=== PATIENT | female | born 1980 | race Caucasian/White ===

== ENCOUNTER 2016-06-02 12:18 | Emergency (ER) | payer MEDICARE, MEDICAID ==
[2016-06-02 12:46] VITALS: BP 115/69
[2016-06-02] MEDS ORDERED: Ketorolac 60 MG/2 ML SDV IM ONE (12:51)
--- NOTE | 2016-06-02 12:57 | EDM.PDOC ---
[id number] 4d PAIN RIGHT SIDE OV PELVIC AREA Time Seen by Provider: 06/02/16 12:30 Source: Reports: Patient, Family History Limitations: Reports: No limitations - History of Present Illness INITIAL COMMENTS - FREE TEXT/NARRATIVE: 36-year-old female in with intense right lower and suprapubic abdominal pain for the past 45 minutes. It started suddenly while she was sitting, very sharp and localized in the lower abdomen. No radiation of pain. No nausea vomiting diarrhea or urinary symptoms. She was brought immediately to the emergency room by her , and shortly after she arrived it started going away and now it is almost gone. She has not had this type of pain in the past. Location: suprapubic Quality: Reports: stabbing Severity: moderate Associated Symptoms (-Female): Reports: denies other symptoms - Related Data Allergies/ADRs: Allergies Allergy/AdvReac Type Severity Reaction Status Date / Time bee venom protein (honey bee) Allergy Swelling Verified 06/02/16 12:32 aspirin AdvReac Nausea and Verified 03/07/15 06:15 Vomiting Home Meds: Home Meds Albuterol Sulfate [Proair Hfa] 1 - 2 puff IH Q4H PRN 11/19/12 [History] Ibuprofen [Motrin] 600 mg PO Q6H PRN #100 tablet 11/16/14 [Rx] Vit with Ca/FA/Iron [ Plus Iron] 1 each PO DAILY tablet [Rx] Methocarbamol [Methocarbamol] 1 tab PO TID 03/07/15 [History] Montelukast Sodium 10 mg PO DAILY 03/07/15 [History] DULoxetine HCl [Duloxetine HCl] 1 tab PO DAILY 10/24/15 [History] Past Medical History Respiratory History: Reports: Asthma Gastrointestinal History: Reports: Hiatal hernia 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) Other OB/BYN History: Tubal C section Musculoskeletal History: Reports: Back pain, chronic Psychiatric History: Reports: Anxiety - Infectious Disease History Infectious Disease History: Reports: Chicken pox - Past Surgical History GI Surgical History: Reports: Hernia repair/other Female Surgical History: Reports: section, Tubal ligation Social & Family History - Tobacco Use Smoking Status *Q: Current Every Day Smoker Years of Tobacco use: 6 Packs/Tins Daily: 1 Used Tobacco, but Quit: No Month Tobacco Last Used: 4 years Second Hand Smoke Exposure: Yes - Caffeine Use Caffeine Use: Reports: Coffee, Soda - Alcohol Use Days Per Week of Alcohol Use: 0 Number of Drinks Per Day: 1 Total Drinks Per Week: 0 - Recreational Drug Use Recreational Drug Use: No ED ROS GENERAL - Review of Systems Review Of Systems: See Below Constitutional: Denies: fever, chills Respiratory: Reports: No Symptoms Cardiovascular: Reports: No symptoms GI/Abdominal: Reports: Abdominal pain. Denies: Diarrhea, Nausea, Vomiting : Reports: no symptoms Musculoskeletal: Reports: no symptoms Skin: Reports: no symptoms Neurological: Denies: Headache ED EXAM, GI/ABD - Physical Exam Exam: See Below Exam Limited By: No limitations General Appearance: alert, no apparent distress Eyes: bilateral: normal appearance Respiratory/Chest: no respiratory distress, lungs clear Cardiovascular: regular rate, rhythm GI/Abdominal: normal bowel sounds, soft, tenderness (She does still have some tenderness to palpation in the right lower quadrant and suprapubic area but it is minimal. She is able to jump up and down sustaining firm heel strikes to the floor without any symptoms) Course - Vital Signs Last Recorded V/S: Last Vital Signs Temp 96.3 F 06/02/16 12:40 Pulse 86 06/02/16 12:40 Resp 16 06/02/16 12:40 BP 115/69 06/02/16 12:40 Pulse Ox 93 L 06/02/16 12:40 - Orders/Labs/Meds Meds: Medications Discontinued Medications Generic Name Dose Route Start Last Admin Trade Name Roslyn PRN Reason Stop Dose Admin Ketorolac Tromethamine 60 mg 06/02/16 12:51 06/02/16 12:57 Toradol IM 06/02/16 12:52 60 mg ONETIME ONE Administration - Re-Assessments/Exams Free Text/Narrative Re-Assessment/Exam: 06/02/16 12:57 Discuss possible etiologies including functional bowel pain or possibly an ovarian cyst. Bowel pain is the most likely scenario as the pain has almost completely resolved. She was given Toradol 60 mg IM and will return if pain recurs or she develops fever or other concerns. Departure - Departure Time of Disposition: 13:07 Disposition: Home, Self-Care 01 Condition: good Clinical Impression: Abdominal pain Qualifiers: Abdominal location: lower abdomen, unspecified Qualified Code(s): R10.30 - Lower abdominal pain, unspecified Instructions: Abdominal Pain, Adult Referrals: Xochilt Hurt CNM [Primary Care Provider] - Forms: ED Department Discharge Care Plan Goals: Increase diet and activity as tolerated. Return if worsening such as increased pain, fever, or vomiting.
== END 2016-06-02 13:07 | disposition home or self-care (01) ==
LOC: JP.ED 12:18
DX: R10.31 Right lower quadrant pain (principal); J45.909 Unspecified asthma, uncomplicated; F41.9 Anxiety disorder, unspecified; F17.210 Nicotine dependence, cigarettes, uncomplicated; Z98.51 Tubal ligation status; Z91.030 Bee allergy status; Z88.6 Allergy status to analgesic agent; Z79.899 Other long term (current) drug therapy
CPT/HCPCS: 96372; 99284; J1885; 99283

== ENCOUNTER 2016-06-20 10:43 | Day surgery (SDC) | payer MEDICARE, MEDICAID ==
[~2016-06-20 10:43] MED LIST: Bupivacaine 0.5% 50 ML MDV ONE; Lidocaine 1% with EPINEPHrine 1:100,000 50 ML MDV ONE
[2016-06-20] MEDS ORDERED: Lactated Ringers 1,000 ML IV SCH (11:15)
[2016-06-20] MEDS ORDERED: ceFAZolin 2 GM in Premix Bag 1 BAG IV ONE (12:00)
[2016-06-20] MEDS ORDERED: ceFAZolin 2 GM in Sodium Chloride 0.9% 50 ML IV ONE (12:00)
[2016-06-20] MEDS ORDERED: Propofol 200 MG/20 ML SDV ONE ×2 (12:02→12:46)
[2016-06-20] MEDS ORDERED: fentaNYL 100 MCG/2 ML SDV ONE ×2 (12:02→12:53)
[2016-06-20] MEDS ORDERED: Midazolam 1 MG/ML 2 ML SDV ONE ×2 (12:02→12:57)
[2016-06-20] MEDS ORDERED: Acetaminophen/HYDROcodone 325-5 MG Tab PO PRN (14:15)
[2016-06-20 14:25] VITALS: BP 115/76
--- NOTE | 2016-06-21 08:10 | OR ---
DATE OF PROCEDURE: 06/20/2016 PREOPERATIVE DIAGNOSIS: Indirect left inguinal hernia. POSTOPERATIVE DIAGNOSIS: Small indirect left inguinal hernia. PROCEDURE: Suture closure of small indirect left inguinal hernia. ANESTHESIA: IV anesthesia with monitored anesthesia care. INDICATION: This 36-year-old white female has a history of sections. She complains of pain in her left groin and there is no palpable mass. She had an ultrasound of the area, which showed a small indirect left inguinal hernia. She is referred for repair of this. I counseled her for surgery including risks and alternatives and she gave her informed consent to proceed. She denies predisposing factors for hernia formation and there are no signs or symptoms of incarceration or obstruction. DESCRIPTION OF PROCEDURE: After adequate spinal anesthesia was obtained, the patient's lower abdomen, groin, and genitalia were prepped and draped in the usual sterile fashion. Time-out was held. Lidocaine 1% with epinephrine in a 50:50 mix with 0.5% Marcaine was infiltrated about the left groin. A left groin incision was made 2 cm superior and medial to the inguinal ligament. This was carried deep using Bovie cautery to the external oblique. The external oblique was opened parallel to course of its fibers from the internal and external ring area. The floor was examined. There was a very small defect, probably so small that a pencil could not be passed through it. We closed this area with a running stitch of 0 Prolene approximating the conjoined tendon to the shelving edge of the inguinal ligament. Additionally, the processus vaginalis was divided. The area was anesthetized further with local anesthesia. The external oblique was closed with a running stitch of 2-0 Vicryl. Interrupted 3-0 Vicryl stitches were placed to approximate Manuelito's fascia, 4-0 Vicryl using a subcuticular stitch was placed to approximate the skin. Dermabond was applied. The patient tolerated the procedure well and was brought to recovery room in good condition. Charles Berry MD /[id number] ESMER
== END 2016-06-20 14:40 | disposition home or self-care (01) ==
LOC: JP.SDS 10:43
PROVIDERS: ATTEND Surgery
PROC: 0WQF0ZZ Repair Abdominal Wall, Open Approach (ICD-10-PCS; principal; 2016-06-20)
DX: K43.2 Incisional hernia without obstruction or gangrene (principal); Z91.030 Bee allergy status; Z88.8 Allergy status to other drugs, medicaments and biological substances
CPT/HCPCS: 49560; A9270; J0690; J2250; J2704; J3010; J7050; J7120

== ENCOUNTER 2016-08-24 08:11 | Emergency (ER) | payer MEDICARE, MEDICAID ==
[2016-08-24 08:20] VITALS: BP 114/76
--- NOTE | 2016-08-24 09:16 | EDM.PDOC ---
ED HPI GENERAL MEDICAL PROBLEM - General Chief Complaint: Gastrointestinal Problem Stated Complaint: NAUSEA,VOMITING,DIARRHEA Time Seen by Provider: 08/24/16 09:04 Source of Information: Reports: Patient, Family, Old Records, RN Notes Reviewed History Limitations: Reports: No Limitations - History of Present Illness INITIAL COMMENTS - FREE TEXT/NARRATIVE: 36-year-old female presents emergency department day complaint nausea and vomiting, she states she's been ill for the last couple of days does have diarrhea loose watery stools, no fevers does get nauseated with vomiting but only when she drinks her tap water at home. Is able does consume all other beverages and food without difficulty. She is the only individual drinking out of this tap water other people in the house do not use this source she does make coffee from the tap water is able to consume coffee does get some nausea but no vomiting - Related Data Allergies Allergy/AdvReac Type Severity Reaction Status Date / Time bee venom protein (honey bee) Allergy Swelling Verified 08/24/16 08:31 aspirin AdvReac Nausea and Verified 08/24/16 08:31 Vomiting Home Meds: Home Meds Ibuprofen [Motrin] 600 mg PO Q6H PRN #100 tablet 11/16/14 [Rx] Vit with Ca/FA/Iron [ Plus Iron] 1 each PO DAILY tablet [Rx] Montelukast Sodium 10 mg PO DAILY 03/07/15 [History] DULoxetine HCl [Duloxetine HCl] 20 mg PO DAILY 10/24/15 [History] Acetaminophen/HYDROcodone [Orion 325-5 MG] 1 tab PO Q4H PRN 06/17/16 [History] Fexofenadine [Estela] 180 mg PO DAILY 06/17/16 [History] Orphenadrine [Norflex] 100 mg PO BID 06/17/16 [History] Vitamin E 200 units PO DAILY 06/20/16 [History] Past Medical History HEENT History: Reports: Impaired Vision, Other (See Below) 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 Cardiovascular History: Reports: Heart Murmur Respiratory History: Reports: Asthma Gastrointestinal History: Reports: Hiatal Hernia 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: Reports: Polycystic Ovaries, , Other (See Below) Other OB/BYN History: Tubal C section Musculoskeletal History: Reports: Back Pain, Chronic Psychiatric History: Reports: Anxiety Dermatologic History: Reports: Other (See Below) Other Dermatologic History: recent bina tattoo - has 3 tattoo - Infectious Disease History Infectious Disease History: Reports: Chicken Pox, Influenza - Past Surgical History HEENT Surgical History: Reports: Eye Surgery, Laser Surgery, Other (See Below) GI Surgical History: Reports: Hernia, Inguinal, Hernia Repair/Other, Kindra Fundoplication Female Surgical History: Reports: Section, Tubal Ligation Social & Family History - Family History Family Medical History: Noncontributory - Tobacco Use Smoking Status *Q: Current Every Day Smoker Years of Tobacco use: 24 Packs/Tins Daily: 0.5 Used Tobacco, but Quit: No Month Tobacco Last Used: 4 years Second Hand Smoke Exposure: Yes - Caffeine Use Caffeine Use: Reports: Coffee, Energy Drinks, Soda, Other Other Caffeine Use: 2-3 cups coffee daily. energy drinks - 2 a day. 1-2 cans of soda each evening - Alcohol Use Days Per Week of Alcohol Use: 6 Number of Drinks Per Day: 2 Total Drinks Per Week: 12 Date of Last Drink: 08/23/16 - Recreational Drug Use Recreational Drug Use: No ED ROS GENERAL - Review of Systems Review Of Systems: See Below Constitutional: Denies: Fever, Chills HEENT: Reports: No Symptoms Respiratory: Reports: No Symptoms Cardiovascular: Reports: No Symptoms GI/Abdominal: Reports: Diarrhea, Nausea, Vomiting. Denies: Abdominal Pain : Reports: No Symptoms Musculoskeletal: Reports: No Symptoms Skin: Reports: No Symptoms Neurological: Reports: No Symptoms ED EXAM, GI/ABD - Physical Exam Exam: See Below Text/Narrative:: General: Female, not in any distress, alert and oriented x3 HEENT: head is atraumatic normocephalic, eyes pupils equal round reactive to light, sclera clear no conjunctivitis appreciated. Ears tympanic membranes clear and hughes landmarks and light reflex are present bilaterally canals are clear. Nose no septal deviation, nares are clear, no blood present. Mouth mucosa is moist and pink no erythema or exudate noted in soft palate, tongue is midline uvula is midline, dentition is poor. Neck: Supple no thyromegaly no tracheal deviation. Nodes: Cervical nodes subclavicular nodes nontender no palpable lymphadenopathy noted. Lungs: clear to auscultation bilaterally with symmetrical respirations, no adventitious noise appreciated. CV: Regular rate and rhythm S1 and S2 appreciated no murmurs rubs or gallops noted. Abdomen: Soft, nontender, no palpable masses or organomegaly appreciated, no distention no guarding bowel sounds are present, . Neuro: Cranial nerves II through XII grossly intact Skin: Warm and dry, intact Extremities: No lower extremity edema appreciated, Course - Vital Signs Last Recorded V/S: Last Vital Signs Temp 96.6 F 08/24/16 08:32 Pulse 78 08/24/16 08:32 Resp 14 08/24/16 08:32 BP 114/76 08/24/16 08:32 Pulse Ox 96 08/24/16 08:32 - Orders/Labs/Meds Orders: Active Orders 24 hr Category Date Time Status WBC, STOOL [OP] Stat Lab 08/24/16 09:13 Uncollected Labs: Laboratory Tests 08/24/16 08/24/16 08/24/16 Range/Units 09:27 09:27 09:31 WBC 8.9 (4.5-11.0) K/uL RBC 4.37 (3.30-5.50) M/uL Hgb 14.4 D (12.0-15.0) g/dL Hct 41.7 (36.0-48.0) % MCV 95 (80-98) fL MCH 33 H (27-31) pg MCHC 35 (32-36) % Plt Count 231 (150-400) K/uL Neut % (Auto) 61 (36-66) % Lymph % (Auto) 27 (24-44) % Pike % (Auto) 7 H (2-6) % Eos % (Auto) 4 (2-4) % Baso % (Auto) 2 H (0-1) % Sodium 140 (140-148) mmol/L Potassium 4.6 (3.6-5.2) mmol/L Chloride 105 (100-108) mmol/L Carbon Dioxide 29 (21-32) mmol/L Anion Gap 5.8 (5.0-14.0) mmol/L BUN 10 D (7-18) mg/dL Creatinine 0.8 (0.6-1.0) mg/dL Est Cr Clr Drug Dosing 83.14 mL/min Estimated GFR (MDRD) > 60 (>60) Glucose 90 (74-106) mg/dL Calcium 8.9 (8.5-10.1) mg/dL Total Bilirubin 0.6 (0.2-1.0) mg/dL AST 23 (15-37) U/L ALT 22 (12-78) U/L Alkaline Phosphatase 75 (46-116) U/L Total Protein 7.2 (6.4-8.2) g/dL Albumin 4.1 (3.4-5.0) g/dL Globulin 3.1 (2.3-3.5) g/dL Albumin/Globulin Ratio 1.3 (1.2-2.2) Lipase 142 (73-393) U/L Urine Color Urine Appearance Urine pH (4.5-8.0) Ur Specific [place] (1.008-1.030) Urine Protein (NEGATIVE) mg/dL Urine Glucose (UA) (NEGATIVE) mg/dL Urine Ketones (NEGATIVE) mg/dL Urine Occult Blood (NEGATIVE) Urine Nitrite (NEGATIVE) Urine Bilirubin (NEGATIVE) Urine Urobilinogen (NORMAL) mg/dL Ur Leukocyte Esterase (NEGATIVE) Urine RBC (0-5) Urine WBC (0-5) Ur Epithelial Cells Amorphous Sediment Urine Bacteria Urine Mucus Urine HCG, Qual Negative 08/24/16 Range/Units 09:31 WBC (4.5-11.0) K/uL RBC (3.30-5.50) M/uL Hgb (12.0-15.0) g/dL Hct (36.0-48.0) % MCV (80-98) fL MCH (27-31) pg MCHC (32-36) % Plt Count (150-400) K/uL Neut % (Auto) (36-66) % Lymph % (Auto) (24-44) % Pike % (Auto) (2-6) % Eos % (Auto) (2-4) % Baso % (Auto) (0-1) % Sodium (140-148) mmol/L Potassium (3.6-5.2) mmol/L Chloride (100-108) mmol/L Carbon Dioxide (21-32) mmol/L Anion Gap (5.0-14.0) mmol/L BUN (7-18) mg/dL Creatinine (0.6-1.0) mg/dL Est Cr Clr Drug Dosing mL/min Estimated GFR (MDRD) (>60) Glucose (74-106) mg/dL Calcium (8.5-10.1) mg/dL Total Bilirubin (0.2-1.0) mg/dL AST (15-37) U/L ALT (12-78) U/L Alkaline Phosphatase (46-116) U/L Total Protein (6.4-8.2) g/dL Albumin (3.4-5.0) g/dL Globulin (2.3-3.5) g/dL Albumin/Globulin Ratio (1.2-2.2) Lipase (73-393) U/L Urine Color Yellow Urine Appearance Slightly cloudy Urine pH 5.0 (4.5-8.0) Ur Specific [place] 1.020 (1.008-1.030) Urine Protein Negative (NEGATIVE) mg/dL Urine Glucose (UA) Normal (NEGATIVE) mg/dL Urine Ketones Negative (NEGATIVE) mg/dL Urine Occult Blood Large (NEGATIVE) Urine Nitrite Negative (NEGATIVE) Urine Bilirubin Negative (NEGATIVE) Urine Urobilinogen Normal (NORMAL) mg/dL Ur Leukocyte Esterase Negative (NEGATIVE) Urine RBC 5-10 H (0-5) Urine WBC 0-5 (0-5) Ur Epithelial Cells Many Amorphous Sediment Not seen Urine Bacteria Few Urine Mucus Not seen Urine HCG, Qual Departure - Departure Time of Disposition: 10:16 Disposition: Home, Self-Care 01 Condition: Good Clinical Impression: Nausea and vomiting Qualifiers: Vomiting type: unspecified Vomiting Intractability: non-intractable Qualified Code(s): R11.2 - Nausea with vomiting, unspecified - Discharge Information Forms: ED Department Discharge Additional Instructions: Investigate your kitchen tap for any possible contamination, Please followup with your primary care provider in 3-5 days if not better, please call return to the emergency department with worsening of symptoms. - My Orders Last 24 Hours: My Active Orders 08/24/16 09:13 WBC, STOOL [OP] Stat - Assessment/Plan Last 24 Hours: My Active Orders 08/24/16 09:13 WBC, STOOL [OP] Stat Plan: Assessment Acuity = acute Site and laterality = nausea and vomiting Etiology = related specifically to water taken from her Home Manifestations = none Location of injury = home Lab values = CBC, CMP, urinalysis all unremarkable no stool sample was provided while in the ED Plan Recommending investigating the specific For any contamination, follow up with primary care as needed Patient was in agreement with the plan all questions were answered, they were instructed to return to the emergency department or call for worsening symptoms. This note was dictated using [employer] voice recognition software please call with any questions.
== END 2016-08-24 10:30 | disposition home or self-care (01) ==
LOC: JP.ED 08:11
DX: R11.2 Nausea with vomiting, unspecified (principal); R19.7 Diarrhea, unspecified; Z88.6 Allergy status to analgesic agent; Z91.030 Bee allergy status; Z79.899 Other long term (current) drug therapy; F17.210 Nicotine dependence, cigarettes, uncomplicated; K44.9 Diaphragmatic hernia without obstruction or gangrene; F41.9 Anxiety disorder, unspecified; J45.909 Unspecified asthma, uncomplicated; R01.1 Cardiac murmur, unspecified; M54.9 Dorsalgia, unspecified; G89.29 Other chronic pain; L81.8 Other specified disorders of pigmentation; Z98.890 Other specified postprocedural states
CPT/HCPCS: 36415; 80053; 81001; 81025; 83690; 85025; 99282; 99284

== ENCOUNTER 2016-10-23 08:34 | Emergency (ER) | payer MEDICARE, MEDICAID ==
[2016-10-23 08:54] VITALS: BP 117/79
[2016-10-23] MEDS ORDERED: Dexamethasone 4 MG/ML SDV PO ONE (09:06)
--- NOTE | 2016-10-23 09:10 | EDM.PDOC ---
ED HPI GENERAL MEDICAL PROBLEM - General Chief Complaint: ENT Problem Stated Complaint: SORE THROAT Time Seen by Provider: 10/23/16 09:03 Source of Information: Reports: Patient, RN Notes Reviewed History Limitations: Reports: No Limitations - History of Present Illness INITIAL COMMENTS - FREE TEXT/NARRATIVE: 36-year-old female presents emergency department day complaint of sore throat and hoarse voice has been going on for the last couple days she denies fevers and is progressively getting worse throat Pain Score (Numeric/FACES): 6 - Related Data Allergies Allergy/AdvReac Type Severity Reaction Status Date / Time bee venom protein (honey bee) Allergy Swelling Verified 10/23/16 08:51 aspirin AdvReac Nausea and Verified 10/23/16 08:51 Vomiting Home Meds: Home Meds Ibuprofen [Motrin] 600 mg PO Q6H PRN #100 tablet 11/16/14 [Rx] Vit with Ca/FA/Iron [ Plus Iron] 1 each PO DAILY tablet [Rx] Montelukast Sodium 10 mg PO DAILY 03/07/15 [History] DULoxetine HCl [Duloxetine HCl] 20 mg PO DAILY 10/24/15 [History] Fexofenadine [Estela] 180 mg PO DAILY 06/17/16 [History] Orphenadrine [Norflex] 100 mg PO BID 06/17/16 [History] Vitamin E 200 units PO DAILY 06/20/16 [History] Past Medical History HEENT History: Reports: Impaired Vision, Other (See Below) 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 Cardiovascular History: Reports: Heart Murmur Respiratory History: Reports: Asthma Gastrointestinal History: Reports: Hiatal Hernia 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: Polycystic 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, , Other (See Below) Other OB/BYN History: Tubal C section Musculoskeletal History: Reports: Back Pain, Chronic Psychiatric History: Reports: Anxiety Dermatologic History: Reports: Other (See Below) Other Dermatologic History: recent bina tattoo - has 3 tattoo - Infectious Disease History Infectious Disease History: Reports: Chicken Pox, Influenza - Past Surgical History HEENT Surgical History: Reports: Eye Surgery, Laser Surgery, Other (See Below) GI Surgical History: Reports: Hernia, Inguinal, Hernia Repair/Other, Kindra Fundoplication Female Surgical History: Reports: Section, Tubal Ligation Social & Family History - Family History Family Medical History: Noncontributory - Tobacco Use Smoking Status *Q: Current Every Day Smoker Years of Tobacco use: 15 Packs/Tins Daily: 0.5 Used Tobacco, but Quit: No Month Tobacco Last Used: 4 years Second Hand Smoke Exposure: Yes - Caffeine Use Caffeine Use: Reports: Coffee, Energy Drinks, Soda, Other Other Caffeine Use: 2-3 cups coffee daily. energy drinks - 2 a day. 1-2 cans of soda each evening - Alcohol Use Days Per Week of Alcohol Use: 6 Number of Drinks Per Day: 2 Total Drinks Per Week: 12 - Recreational Drug Use Recreational Drug Use: No ED ROS ENT - Review of Systems Review Of Systems: See Below Constitutional: Denies: Fever, Chills HEENT: Reports: Throat Pain, Throat Swelling, Vertigo Respiratory: Reports: Cough Cardiovascular: Reports: No Symptoms GI/Abdominal: Reports: No Symptoms : Reports: No Symptoms ED EXAM, ENT - Physical Exam Exam: See Below Exam Limited By: No Limitations General Appearance: Alert, WD/WN, No Apparent Distress Eye Exam: Bilateral Eye: Normal Inspection Ears: Normal External Exam, Normal Canal, Hearing Grossly Normal, Normal TMs Nose: Normal Inspection, Normal Mucousa, No Blood Mouth/Throat: Normal Inspection, Normal Gums, Normal Lips, Tonsillar Erythema, Tonsillar Exudates, Tonsillar Swelling Head: Atraumatic, Normocephalic Neck: Normal Inspection, Supple, Non-Tender, Full Range of Motion Respiratory/Chest: No Respiratory Distress, Lungs Clear, Normal Breath Sounds, No Accessory Muscle Use, Chest Non-Tender Cardiovascular: Regular Rate, Rhythm, No Murmur Course - Vital Signs Last Recorded V/S: Last Vital Signs Temp 95.9 F 10/23/16 08:52 Pulse 94 10/23/16 08:52 Resp 16 10/23/16 08:52 BP 117/79 10/23/16 08:52 Pulse Ox 96 10/23/16 08:52 - Orders/Labs/Meds Meds: Medications Discontinued Medications Generic Name Dose Route Start Last Admin Trade Name Nicolaq PRN Reason Stop Dose Admin Dexamethasone 5 mg 10/23/16 09:06 Dexamethasone PO 10/23/16 09:07 ONETIME ONE Departure - Departure Time of Disposition: 09:09 Disposition: Home, Self-Care 01 Condition: Good Clinical Impression: Exudative pharyngitis - Discharge Information Forms: ED Department Discharge Additional Instructions: Take full course of antibiotics, use Robitussin-AC as needed to help suppress the cough, Please followup with your primary care provider in 3-5 days if not better, please call return to the emergency department with worsening of symptoms. - Assessment/Plan Plan: Assessment Acuity = acute Site and laterality = exudative pharyngitis, Etiology = suspicious for bacterial cause Manifestations = none Location of injury = Home Lab values = none Plan Treat empirically with azithromycin 5 day course in combination with Robitussin- AC she was given dexamethasone elixir 1 follow-up with primary care 3-5 days if no improvement Patient was in agreement with the plan all questions were answered, they were instructed to return to the emergency department or call for worsening symptoms. This note was dictated using [employer] voice recognition software please call with any questions.
== END 2016-10-23 09:21 | disposition home or self-care (01) ==
LOC: JP.ED 08:34
DX: J02.9 Acute pharyngitis, unspecified (principal); J45.909 Unspecified asthma, uncomplicated; F41.9 Anxiety disorder, unspecified; F17.210 Nicotine dependence, cigarettes, uncomplicated; Z98.890 Other specified postprocedural states; Z98.51 Tubal ligation status; Z79.899 Other long term (current) drug therapy; Z88.6 Allergy status to analgesic agent; Z91.030 Bee allergy status
CPT/HCPCS: 99283; J1100

== ENCOUNTER 2019-02-25 06:15 | Day surgery (SDC) | payer MEDICARE, MEDICAID ==
[2019-02-25] MEDS ORDERED: fentaNYL 100 MCG/2 ML SDV ONE (06:51)
[2019-02-25] MEDS ORDERED: Midazolam 1 MG/ML 2 ML SDV ONE (06:51)
[2019-02-25] MEDS ORDERED: Propofol 200 MG/20 ML SDV ONE ×2 (06:51→07:52)
[2019-02-25] MEDS ORDERED: Lactated Ringers 1,000 ML IV SCH (07:00)
[2019-02-25 09:30] VITALS: BP 133/79; PULSE 87
--- NOTE | 2019-02-25 09:30 | OR ---
DATE OF PROCEDURE: 02/25/2019 SURGEON: Charles Berry MD PREOPERATIVE DIAGNOSIS: Chronic diarrhea. POSTOPERATIVE DIAGNOSES: Poor colonoscopy prep, chronic diarrhea. PROCEDURE: Colonoscopy to the cecum with random colonic biopsies. ANESTHESIA: IV anesthesia with monitored anesthesia care. INDICATION: This 38-year-old white female is here for a colonoscopy because of chronic diarrhea. She had a CAT scan of her abdomen and pelvis, which showed possible thickness of her cecum and ascending colon. I counseled her for a colonoscopy with possible biopsy including risks and alternatives, and she gave her informed consent to proceed. PROCEDURE IN DETAIL: The patient was placed in the left lateral decubitus position. IV anesthesia was administered by the Anesthesia Service. Time-out was held. A rectal exam was performed, which was unremarkable. The flexible video Olympus colonoscope was introduced through her anus, up her rectum, and out her colon all the way to the cecum. The prep was fairly poor. It was solid and we could not aspirate free. The scope was then slowly withdrawn, examining the mucosa throughout. No mucosal abnormalities were noted. We did obtain random colonic biopsies throughout the entire colon. The scope was retroflexed in the rectum with the distal rectum appearing unremarkable. The scope was straightened and removed. She tolerated the procedure well. Charles Berry MD /[id number]
== END 2019-02-25 09:25 | disposition home or self-care (01) ==
LOC: JP.SDS 06:15
PROVIDERS: ATTEND Surgery
DX: K52.9 Noninfective gastroenteritis and colitis, unspecified (principal); K63.89 Other specified diseases of intestine; F17.210 Nicotine dependence, cigarettes, uncomplicated; Z88.6 Allergy status to analgesic agent; Z91.030 Bee allergy status
CPT/HCPCS: 45380; J2250; J2704; J3010; J7120; 88305

== ENCOUNTER 2023-01-22 16:39 | Emergency (ER) | payer MEDICARE, MEDICAID ==
[2023-01-22] MEDS ORDERED: oxyCODONE 5 MG Tab PO ONE (17:56)
[2023-01-22 17:59] VITALS: BP 126/92; PULSE 94
== END 2023-01-22 18:27 | disposition home or self-care (01) ==
LOC: JP.ED 16:39
DX: S62.306A Unspecified fracture of fifth metacarpal bone, right hand, initial encounter for closed fracture (principal); J45.909 Unspecified asthma, uncomplicated; E66.9 Obesity, unspecified; Z68.30 Body mass index [BMI] 30.0-30.9, adult; Z98.890 Other specified postprocedural states; Z91.030 Bee allergy status; Z88.8 Allergy status to other drugs, medicaments and biological substances; Z79.899 Other long term (current) drug therapy; W09.8XXA Fall on or from other playground equipment, initial encounter; Y93.39 Activity, other involving climbing, rappelling and jumping off
CPT/HCPCS: 73630-26-RT; 73630-RT; 99283; A9270-GY